=== PATIENT | male | born 1990 | race American Indian/Alaskan Native ===

== ENCOUNTER 2017-05-26 17:27 | Emergency (ER) | payer BC ==
[2017-05-26 17:28] VITALS: BMI 25.1
[2017-05-26 18:15] VITALS: BP 115/70; PULSE 87; RESP 16; TEMP 98.2; O2SAT 99
--- NOTE | 2017-05-26 19:41 | C.PDOC ---
History Of Present Illness 26 y/o male c/o left shoulder pain and left foot pain s/p slip and fall in home this morning. pt sts floor was wet. pt hit face, no loc, no neck pain, no numbness or tingling. pt slept all day and had pain when he woke up, took ibuprofen at home,. Time Seen by Provider: 05/26/17 19:04 Chief Complaint (Nursing): Upper Extremity Problem/Injury History Per: Patient History/Exam Limitations: no limitations Onset/Duration Of Symptoms: Days (1) Current Symptoms Are (Timing): Worse Quality: "Pain" Severity: Moderate Exacerbating Factor(s): Strenuous Use Of Affected Area, Movement Past Medical History Reviewed: Historical Data, Nursing Documentation, Vital Signs Vital Signs: Last Vital Signs Temp 98.2 F 05/26/17 18:11 Pulse 87 05/26/17 18:11 Resp 16 05/26/17 18:11 BP 115/70 05/26/17 18:11 Pulse Ox 99 05/29/17 03:46 - Medical History PMH: No Chronic Diseases Denies: Depression Surgical History: Tonsillectomy - [facility] Procedures INJECT/INFUSE ELECTROLYT (02/05/13) INJECT/INFUSE NEC (03/28/13) Family History: States: Unknown Family Hx - Social History Hx Tobacco Use: Yes Hx Alcohol Use: No Hx Substance Use: Yes - Immunization History Hx Tetanus Toxoid Vaccination: Yes Hx Influenza Vaccination: No Hx Pneumococcal Vaccination: No Review Of Systems Constitutional: Negative for: Fever, Chills Eyes: Negative for: Vision Change Cardiovascular: Negative for: Chest Pain, Light Headedness Respiratory: Negative for: Cough Gastrointestinal: Negative for: Abdominal Pain Musculoskeletal: Positive for: Shoulder Pain (left), Foot Pain (left). Negative for: Neck Pain Skin: Negative for: Bruising Neurological: Negative for: Weakness, Numbness Physical Exam - Physical Exam Appears: Non-toxic, No Acute Distress, Other Skin: Warm, Dry Head: Atraumatic, Normacephalic Neck: No Midline Cervical Tenderness, Supple Extremity: Other (left foot with tenderness to proximal first metatarsal, no swelling,. +2 dp pulse, from at ankle. left shoulder diffusely tender, dec rom, +2 radial pulse, from of left fingers. wrist and elbow. ) Neurological/Psych: Oriented x3, Normal Speech, Normal Cognition, Normal Motor, Normal Sensation ED Course And Treatment O2 Sat by Pulse Oximetry: 99 Medical Decision Making Medical Decision Making: shoulder and foot pain s/p slip[ and fall: plan: analgesics and xray, re-eval 809 pm xrays reviewd, no fx noted; d/c home with nsaids, sling. f/u ortho Disposition Counseled Patient/Family Regarding: Studies Performed, Diagnosis, Need For Followup, Rx Given - Disposition Referrals: Loco Conley III, MD [Staff Provider] - Disposition: HOME/ ROUTINE Disposition Time: 20:10 Condition: GOOD Additional Instructions: Please wear sling for comfort for a few days then you must start moving shoulder gently. Cold compresses to shoulder several times a day. Follow up with orthopedist- call for an appointment. Ibuprofen for pain. Prescriptions: Ibuprofen [Motrin] 600 mg PO TID #30 tab Instructions: Shoulder Sprain (ED), Foot Sprain (ED) Forms: General Discharge Instructions, [facility] (Amharic), Work Excuse - Clinical Impression Clinical Impression: Sprain of left shoulder girdle, Left foot pain
--- NOTE | 2017-05-27 08:29 | RAD ---
PROCEDURE: Radiographs of the Left Shoulder HISTORY: fell onto shoulder, dec rom and pain COMPARISON: None available. FINDINGS: BONES: No acute displaced fracture. The distal clavicle and underlying ribs appear intact. JOINTS: No acute dislocation. SOFT TISSUES: Soft tissues appear unremarkable. No evidence of radiopaque foreign body. IMPRESSION: No acute displaced fracture or dislocation evident. If symptoms persist or if there is continued clinical concern, x-ray follow-up in 7-10 days should be considered.
--- NOTE | 2017-05-27 08:30 | RAD ---
PROCEDURE: Left Foot Radiographs. HISTORY: s/p fall, pain to 1st metatarsal COMPARISON: None available. FINDINGS: BONES: No acute displaced fracture. JOINTS: No dislocation. SOFT TISSUES: Unremarkable. No evidence of radiopaque foreign body. OTHER FINDINGS: None. IMPRESSION: No acute displaced fracture, dislocation, or significant joint effusion identified. If symptoms persist, or if there is continued clinical concern, x-ray follow-up in 7-10 days should be considered.
== END 2017-05-26 20:20 | disposition home or self-care (01) ==
LOC: C.ER 17:27
DX: S43.402A Unspecified sprain of left shoulder joint, initial encounter (principal); W01.0XXA Fall on same level from slipping, tripping and stumbling without subsequent striking against object, initial encounter; M79.672 Pain in left foot

== ENCOUNTER 2017-06-14 20:07 | Emergency (ER) | payer BC ==
[2017-06-14 20:08] VITALS: BMI 25.1
[2017-06-14 20:15] VITALS: BP 125/86; PULSE 99; TEMP 98; O2SAT 100
--- NOTE | 2017-06-14 21:19 | C.PDOC ---
History Of Present Illness 26 year old female presents to the ED c/o productive cough, body aches, chills, sore throat, headache for the past 2 days. Patient denies recent travel, sick contacts, fever, nausea, vomit, diarrhea, abdominal pain. Time Seen by Provider: 06/14/17 20:29 Chief Complaint (Nursing): Cough, Cold, Congestion History Per: Patient History/Exam Limitations: no limitations Onset/Duration Of Symptoms: Days Location Of Pain: Throat, Diffuse Myalgias Sick Contacts (Context): None Associated Symptoms: Chills, Sore Throat Ear Symptoms: Bilateral: None Recent travel outside of the [place]: No Additional History Per: Patient Past Medical History Reviewed: Historical Data, Nursing Documentation, Vital Signs Vital Signs: Last Vital Signs Temp 98 F 06/14/17 20:12 Pulse 99 H 06/14/17 20:12 Resp 20 06/14/17 21:28 BP 125/86 06/14/17 20:12 Pulse Ox 100 06/15/17 02:10 - Medical History PMH: No Chronic Diseases Denies: Depression Surgical History: Tonsillectomy - [facility] Procedures INJECT/INFUSE ELECTROLYT (02/05/13) INJECT/INFUSE NEC (03/28/13) Family History: States: Unknown Family Hx - Social History Hx Tobacco Use: Yes Hx Alcohol Use: No Hx Substance Use: Yes - Immunization History Hx Tetanus Toxoid Vaccination: Yes Hx Influenza Vaccination: No Hx Pneumococcal Vaccination: No Review Of Systems Constitutional: Positive for: Chills, Malaise. Negative for: Fever ENT: Positive for: Throat Pain Cardiovascular: Negative for: Chest Pain, Palpitations Respiratory: Positive for: Cough, Sputum. Negative for: Shortness of Breath Gastrointestinal: Negative for: Nausea, Vomiting Skin: Negative for: Rash Neurological: Positive for: Headache. Negative for: Weakness, Numbness Physical Exam - Physical Exam Appears: Non-toxic, No Acute Distress Skin: Normal Color, Warm, Dry Head: Atraumatic, Normacephalic Eye(s): bilateral: Normal Inspection Ear(s): Bilateral: Normal Nose: No Discharge Oral Mucosa: Moist Throat: Normal, No Erythema, No Exudate Neck: Normal ROM, Supple Chest: Symmetrical Cardiovascular: Rhythm Regular, No Murmur Respiratory: Normal Breath Sounds, No Rales, No Rhonchi, No Wheezing Gastrointestinal/Abdominal: Soft, No Tenderness, No Guarding, No Rebound Extremity: Normal ROM, No Tenderness, No Swelling Neurological/Psych: Oriented x3 Gait: Steady ED Course And Treatment O2 Sat by Pulse Oximetry: 100 (On RA) Pulse Ox Interpretation: Normal Progress Note: Patient is resting comfortably, and is in no acute respiratory distress. Patient was instructed to follow up with PMD in 1-2 days for further evaluation and return instructions were given. Disposition Counseled Patient/Family Regarding: Diagnosis, Need For Followup, Rx Given - Disposition Referrals: Pancho Crowley MD [Staff Provider] - Disposition: HOME/ ROUTINE Disposition Time: 21:15 Condition: STABLE Additional Instructions: Please follow up with PMD Bed rest Increase fluids Return to ER if worse Prescriptions: Benzonatate [Tessalon Perles] 100 mg PO TID #20 sgl Cetirizine HCl [Zyrtec] 10 mg PO DAILY #20 capsule Ibuprofen [Motrin] 600 mg PO Q6H #30 tab Instructions: Influenza (ED) Forms: [facility] (German), Work Excuse - Clinical Impression Clinical Impression: Influenza-like illness - PA / MICROBIOLOGY QUALITY CONTROL TECHNICIAN / Resident Statement MD/DO has reviewed & agrees with the documentation as recorded. - Scribe Statement The provider has reviewed the documentation as recorded by the Scribe Morgan Young All medical record entries made by the Abneribmague were at my direction and personally dictated by me. I have reviewed the chart and agree that the record accurately reflects my personal performance of the history, physical exam, medical decision making, and the department course for this patient. I have also personally directed, reviewed, and agree with the discharge instructions and disposition.
[2017-06-14 21:28] VITALS: RESP 20
== END 2017-06-14 21:28 | disposition home or self-care (01) ==
LOC: C.ER 20:07
DX: J11.1 Influenza due to unidentified influenza virus with other respiratory manifestations (principal); F17.210 Nicotine dependence, cigarettes, uncomplicated